=== PATIENT | female | born 1985 | race Caucasian/White ===

== ENCOUNTER 2016-07-17 21:07 | Emergency (ER) | payer BC ==
[2016-07-17 21:16] VITALS: BP 97/55; BMI 18.8
--- NOTE | 2016-07-17 23:26 | DR.GENAD ---
HPI - PCP Primary Care Physician: nfd - Complaint/Symptoms Chief Complaint:: pt states" my back has been hurting for a week and now my stomach hurts and i've had a couple loose stools" - Nurses notes reviewed Nurses Notes Review: Yes - Source History Provided: Patient - Mode of Arrival Mode of Arrival: Ambulatory - Timing Onset of Chief Complaint: 07/10/16 Came on: Gradually - Duration Duration: Intermittent How lon Duration: Days - Location Location: lumbar area - Severity Severity: Mild - Modifying Factors Worsens:: certain positions - Associated Signs and Symptoms Associated Signs and Symptoms: now stomach hurts and loose stools PMH - PMH Past Medical History: Yes 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 Past Surgical History: Yes Surgical History: Past Surgical History Comment: breast agumentation - Family History History of Family Medical Conditions: Yes Family Medical History: Diabetes Mellitus - Social History Does patient currently use any type of tobacco product: No Have you used tobacco products in the last 12 months: No Type of Tobacco Use: None Do you use any recreational Drugs:: No Lives Where: Home - infectious screening In the last 2 months have you had wt loss of >10#?: NO Have you had fever, night sweats or hemotysis?: No Have you traveled outside the country in the last 6 months?: No Isolation: Standard ROS - Review of Systems Constitutional: No Symptoms Reported Eyes: No Symptoms Reported ENTM: No Symptoms Reported Respiratoy: No Symptoms Reported Cardiovascular: No Symptoms Reported Gastrointestinal/Abdominal: Diarrhea Genitourinary: No Symptoms Reported Neurological: No Symptoms Reported Musculoskeletal: No Symptoms Reported Integumentary: No Symptoms Reported Hematologic/Lymphatic: No Symptoms Reported Endocrine: No Symptoms Reported Psychiatric: No Symptoms Reported PE - Vital Signs Vitals: Temperature 98.2 F Pulse Rate 97 Respiratory Rate 18 Blood Pressure 97/55 O2 Sat by Pulse Oximetry 99 - General Limitations: No Limitations General Appearance: Alert, In No Apparent Distress - Head Head Exam: Normal Inspection - Eyes Eye exam: Normal Appearance, EOMI. negative: Scleral Icterus, Conjunctival Injection - ENT External Ear Exam: Normal External Inspection - Chest Chest Inspection: Normal Inspection, Symmetric Chest Wall Rise - Respiratory Respiratory Exam: Normal Lung Sounds Bilat. negative: Accessory Muscle Use, Respiratory Distress Respiratory Exam: Bilateral Clear to Auscultation - Cardiovascular Cardiovascular Exam: Regular Rate - Abdominal Exam Abdominal Exam: Normal Inspection, Normal Bowel Sounds, Soft. negative: Distention, Tenderness, Guarding Abdominal Tenderness: negative: RUQ, RLQ, LUQ, LLQ, Epigastrium, Suprapubic, Diffuse, Mild, Moderate, Severe, Other - Extremities Extremities Exam: Normal Inspection, Full ROM - Back Back Exam: Tenderness (lumbar area) - Neurologic Neurological Exam: Alert, Oriented X3, CN II-XII Intact - Psychiatric Psychiatric Exam: Normal Mood - Skin Skin Exam: Intact, Normal Color ROR - Labs Reviewed Laboratory: Specimen Type Clean catch urine 07/17/16 23:41 Urine Color Yellow (YELLOW) 07/17/16 23:41 Urine Appearance Clear (CLEAR) 07/17/16 23:41 Urine pH 5.0 (5.0 - 8.0) 07/17/16 23:41 Ur Specific [place] 1.025 (1.000-1.030) 07/17/16 23:41 Urine Protein 1+ (NEGATIVE) 07/17/16 23:41 Urine Glucose (UA) Negative (NEGATIVE) 07/17/16 23:41 Urine Ketones Negative (NEGATIVE) 07/17/16 23:41 Urine Occult Blood Negative (NEGATIVE) 07/17/16 23:41 Urine Nitrite Negative (NEGATIVE) 07/17/16 23:41 Urine Bilirubin Negative (NEGATIVE) 07/17/16 23:41 Urine Urobilinogen Normal (NORMAL) 07/17/16 23:41 Ur Leukocyte Esterase Negative (NEGATIVE) 07/17/16 23:41 Urine RBC None seen /HPF (NEGATIVE) 07/17/16 23:41 Urine WBC 0-1 /HPF (NEGATIVE) 07/17/16 23:41 Ur Squamous Epith Cells Rare /HPF (NEGATIVE) 07/17/16 23:41 Urine Bacteria Trace /HPF (NEGATIVE) 07/17/16 23:41 Urine Mucus Moderate /HPF (NEGATIVE) 07/17/16 23:41 Ur Culture Indicated? No/not indicated 07/17/16 23:41 - XRAY XRAY Interpreted by: Radiologist XRAY Findings: CT lumbar spine: small disc bulge L-5/S-1 - Diagnosis Discharge Problem: Back pain Qualifiers: Back pain location: low back pain Chronicity: acute Back pain laterality: midline Sciatica presence: without sciatica Qualified Code(s): M54.5 - Low back pain - Discharge Plan Condition: Stable Prescriptions: Hydrocodone-Acetaminophen [Lortab 5-325 mg] 1 tab PO Q6H PRN #12 tab PRN Reason: Pain Ondansetron [Zofran Odt] 4 mg PO Q8H PRN #12 tab PRN Reason: Nausea/Vomiting - Follow ups/Referrals Follow ups/Referrals: [facility],None [Primary Care Provider] - 3 days - Instructions
[2016-07-17] MEDS ORDERED: ZOFRAN TAB 4 MG PO ONE (23:33)
[2016-07-17] MEDS ORDERED: DEMEROL INJ IM ONE (23:34)
[2016-07-17] MEDS ORDERED: ZOFRAN TAB 4 MG ONE (23:38)
[2016-07-17] MEDS ORDERED: DEMEROL INJ ONE (23:39)
[2016-07-18 00:12] LABS: BILIRUBIN,URINE NEGATIVE (NEGATIVE); BLOOD/HEMOGLOBIN,URINE NEGATIVE (NEGATIVE); GLUCOSE, URINE NEGATIVE (NEGATIVE); KETONES,URINE NEGATIVE (NEGATIVE); LEUKOCYTE ESTERASE ,URINE NEGATIVE (NEGATIVE); NITRITES,URINE NEGATIVE (NEGATIVE); PROTEIN,URINE 1+ (NEGATIVE); UROBILINOGEN,URINE NORMAL (NORMAL)
[2016-07-18 00:19] LABS: APPEARANCE,URINE CLEAR (CLEAR); COLOR,URINE YELLOW (YELLOW)
[2016-07-18 00:20] LABS: BACTERIA,URINE TRACE /HPF (NEGATIVE); MUCUS,URINE MODERATE /HPF (NEGATIVE); RBC,URINE NONE SEEN /HPF (NEGATIVE); SQUAMOUS EPITHELIAL CELL,UR RARE /HPF (NEGATIVE)
--- NOTE | 2016-07-18 00:21 | CT ---
CT lumbar spine without contrast Indication: Low back and stomach pain without trauma. Technique: Helical images through the lumbar spine without contrast. Coronal and sagittal reformats provided. Findings: Vertebral body heights are normal without cortical lucency or malalignment seen. Small dis c bulge L5-S1 noted. Within limits of CT, the spinal canal is grossly patent. No high-grade neural f oramen stenosis identified. Limited images through lower chest shows no acute abnormality. Limited i mages through the abdomen and pelvis shows nonobstructing right renal stone on axial image 50 nonobs tructing left renal stone on axial image 31. No ureteral stone or hydronephrosis seen, along the cou rse of the visualized ureters. Impression: 1. No acute osseous abnormality. Small disc bulge at L5-S1 without high-grade stenosis. 2. Bilateral nonobstructing renal stones. Correlate clinically for flank pain and hematuria. Reported By:
== END 2016-07-18 00:51 | disposition home or self-care (01) ==
LOC: ER 21:18
DX: M54.5 Low back pain (principal); N20.0 Calculus of kidney
CPT/HCPCS: 72131; 81001; 96372; 99283; S0181; J2175